=== PATIENT | male | born 1950 | race Caucasian/White ===

== ENCOUNTER 2017-02-12 21:04 | Emergency (ER) | payer OTHER, BC ==
[~2017-02-12] VITALS: Ht 177.8 cm; Wt 97.0 kg
[2017-02-12] MEDS ORDERED: ROBAXIN750 MG PO (21:52)
[2017-02-12] MEDS ORDERED: NORCO 5/3251 TABLET PO (21:52)
[2017-02-12 22:23] VITALS: BP 172/104
== END 2017-02-12 22:24 | disposition home or self-care (01) ==
LOC: EXP 21:04 → EME 21:04 → EXP 22:24
DX: M79.652 Pain in left thigh (principal); R25.2 Cramp and spasm; I10 Essential (primary) hypertension; Z79.01 Long term (current) use of anticoagulants; Z88.0 Allergy status to penicillin; Z87.891 Personal history of nicotine dependence
CPT/HCPCS: 99281; 99283

== ENCOUNTER 2017-02-14 17:33 | Inpatient (IN) | payer OTHER, BC ==
[~2017-02-14] VITALS: Ht 177.8 cm; Wt 94.8 kg
[~2017-02-14 17:33] MED LIST: NORCO 5/3251 TABLET PO; ROBAXIN750 MG PO
[2017-02-14 18:53] LABS: MCH 29.1 PG (29.0-34.0); MCV 85.6 FL (86-99); MEAN PLAT.VOLUME 10.7 uM^3 (9.0-12.4); PLATELET COUNT 239 K/uL (156-360); RBC DIS.WIDTH-CV 13.6 % (11.8-14.6); RBC DIS.WIDTH-SD 42.5 % (39-53); RED BLOOD COUNT 4.09 M/uL (4.00-5.50); WHITE BLOOD COUNT 14.5 K/uL (4.1-10.2)
[2017-02-14 19:03] LABS: CHLORIDE 99 mEq/L (99-109); POTASSIUM 3.7 mEq/L (3.7-5.4); SODIUM 133 mEq/L (136-147)
[2017-02-14 19:04] LABS: GLUCOSE 233 mg/dL (70-99)
[2017-02-14 19:06] LABS: ANION GAP 11 MEQ/L (2-14)
[2017-02-14 19:08] LABS: GFR ESTIMATE (CALCULATED) > 59 mL/min/
[2017-02-14 19:09] LABS: UREA NITROGEN (BUN) 13 mg/dL (9-23)
[2017-02-14] MEDS ORDERED: NEXIUM40 MG PO (21:13)
[2017-02-14] MEDS ORDERED: BENTYL20 MG PO (21:13)
[2017-02-14] MEDS ORDERED: COUMADIN4 MG PO (21:14)
[2017-02-14] MEDS ORDERED: XALATAN2.5 ML BOTH EYES (21:14)
[2017-02-14] MEDS ORDERED: LOTREL 10/21 CAPSULE PO (21:14)
[2017-02-14] MEDS ORDERED: PREDNISONE5 MG PO (21:14)
[2017-02-14] MEDS ORDERED: LITE COAT ASPI325 M1 PO (21:15)
[2017-02-14] MEDS ORDERED: CENTRUM MEN'S1 EACH PO (21:15)
[2017-02-14] MEDS ORDERED: REFRESH TEARS15 ML BOTH EYES (21:15)
[2017-02-14] MEDS ORDERED: COSOPT EYE DROP10 ML BOTH EYES (21:15)
[2017-02-14] MEDS ORDERED: SALINE NASAL SP45 ML BOTH NARES (21:16)
[2017-02-14 22:56] VITALS: BP 141/83
[2017-02-14 23:52] VITALS: BP 141/83
[2017-02-15 00:19] LABS: POINT-OF-CARE METER ID UU13113774
[2017-02-15 05:54] LABS: POINT-OF-CARE METER ID UU13113774
[2017-02-15 06:00] LABS: HEMATOCRIT 33.3 % (38.0-50.0); MCH 29.9 PG (29.0-34.0); MCHC 34.2 G/DL (30.0-36.0); MCV 87.4 FL (86-99); MEAN PLAT.VOLUME 10.3 uM^3 (9.0-12.4); PLATELET COUNT 197 K/uL (156-360); RBC DIS.WIDTH-SD 44.8 % (39-53); RED BLOOD COUNT 3.81 M/uL (4.00-5.50); WHITE BLOOD COUNT 11.2 K/uL (4.1-10.2)
[2017-02-15 06:04] LABS: INTER. NORMALIZED RATIO 2.8; PROTHROMBIN TIME 32.3 SEC (10.2-12.9)
[2017-02-15 06:29] LABS: ANION GAP 8 MEQ/L (2-14); CHLORIDE 100 MEQ/L (99-109); GFR ESTIMATE (CALCULATED) > 59 mL/min/; GLUCOSE 142 mg/dL (70-99); POTASSIUM 3.5 MEQ/L (3.7-5.4); SAMPLE HEMOLYSIS CHECK 0; SAMPLE ICTERIC CHECK 0; SAMPLE LIPEMIA CHECK 0; SODIUM 137 MEQ/L (136-147); TOTAL BILIRUBIN 0.7 MG/DL (0.0-1.0); UREA NITROGEN (BUN) 13 mg/dL (9-23)
[2017-02-15 06:34] LABS: ALKALINE PHOSPHATASE 109 IU/L (3-129)
[2017-02-15 07:45] VITALS: BP 138/63
[2017-02-15 11:41] LABS: POINT-OF-CARE METER ID UU13113774
[2017-02-15 15:13] VITALS: BP 134/69
[2017-02-15 15:54] LABS: POINT-OF-CARE METER ID UU13113774
[2017-02-15 20:40] VITALS: BP 137/79
[2017-02-15 21:34] LABS: POINT-OF-CARE METER ID UU13113774
[2017-02-16 00:08] VITALS: BP 154/72
[2017-02-16 05:39] LABS: HEMATOCRIT 30.7 % (38.0-50.0); MCH 30.1 PG (29.0-34.0); MCHC 34.2 G/DL (30.0-36.0); MEAN PLAT.VOLUME 10.5 uM^3 (9.0-12.4); PLATELET COUNT 188 K/uL (156-360); RBC DIS.WIDTH-CV 13.8 % (11.8-14.6); RBC DIS.WIDTH-SD 44.4 % (39-53); RED BLOOD COUNT 3.49 M/uL (4.00-5.50); WHITE BLOOD COUNT 8.6 K/uL (4.1-10.2)
[2017-02-16 06:20] LABS: ALKALINE PHOSPHATASE 96 IU/L (3-129); ANION GAP 8 MEQ/L (2-14); CHLORIDE 104 MEQ/L (99-109); GFR ESTIMATE (CALCULATED) > 59 mL/min/; GLUCOSE 118 mg/dL (70-99); POTASSIUM 3.8 MEQ/L (3.7-5.4); SAMPLE HEMOLYSIS CHECK 0; SAMPLE ICTERIC CHECK 0; SAMPLE LIPEMIA CHECK 0; SODIUM 140 MEQ/L (136-147); UREA NITROGEN (BUN) 15 mg/dL (9-23)
[2017-02-16 06:21] LABS: CREATINE KINASE 1477 IU/L (1-294)
[2017-02-16 06:30] LABS: POINT-OF-CARE METER ID UU13113774
[2017-02-16 06:36] LABS: INTER. NORMALIZED RATIO 1.8
[2017-02-16 06:50] LABS: PROTHROMBIN TIME 20.3 SEC (10.2-12.9)
[2017-02-16 07:11] VITALS: BP 153/72
[2017-02-16 11:47] LABS: POINT-OF-CARE METER ID UU13113774
[2017-02-16 15:10] VITALS: BP 137/69
[2017-02-16 16:56] LABS: POINT-OF-CARE METER ID UU13113774
[2017-02-16 21:12] LABS: POINT-OF-CARE METER ID UU13113725
[2017-02-16 22:34] VITALS: BP 168/77
[2017-02-16 22:47] VITALS: BP 169/79
[2017-02-17 06:03] LABS: INTER. NORMALIZED RATIO 1.5; PROTHROMBIN TIME 16.9 SEC (10.2-12.9)
[2017-02-17 06:12] LABS: POINT-OF-CARE METER ID UU13113774
[2017-02-17 07:50] VITALS: BP 133/65
[2017-02-17 11:00] LABS: POINT-OF-CARE METER ID UU13113725
[2017-02-17 15:43] LABS: POINT-OF-CARE METER ID UU13113774
[2017-02-17 16:43] VITALS: BP 140/80
[2017-02-17 19:20] LABS: ADD MIUA? NO; BILIRUBIN NEGATIVE; BLOOD NEGATIVE; COLOR YELLOW ((YELLOW)); GLUCOSE (STRIP) NEGATIVE; KETONES NEGATIVE; LEUKOCYTES NEGATIVE; NITRITE NEGATIVE; PROTEIN (STRIP) NEGATIVE; SPECIFIC GRAVITY 1.013 (1.000-1.030); UROBILINOGEN 0.2 MG/DL (0.2-1.0)
[2017-02-17 21:45] LABS: POINT-OF-CARE METER ID UU13113774
[2017-02-17 23:15] VITALS: BP 158/76
[2017-02-18 06:06] LABS: POINT-OF-CARE METER ID UU13113774
[2017-02-18 06:46] LABS: HEMATOCRIT 31.8 % (38.0-50.0); MCH 29.9 PG (29.0-34.0); MCHC 33.6 G/DL (30.0-36.0); MCV 88.8 FL (86-99); MEAN PLAT.VOLUME 10.4 uM^3 (9.0-12.4); PLATELET COUNT 232 K/uL (156-360); RBC DIS.WIDTH-CV 13.9 % (11.8-14.6); RBC DIS.WIDTH-SD 45.1 % (39-53); RED BLOOD COUNT 3.58 M/uL (4.00-5.50); WHITE BLOOD COUNT 7.5 K/uL (4.1-10.2)
[2017-02-18 07:01] LABS: INTER. NORMALIZED RATIO 1.4; PROTHROMBIN TIME 16.1 SEC (10.2-12.9)
[2017-02-18 07:20] LABS: ALKALINE PHOSPHATASE 75 IU/L (3-129); ANION GAP 8 MEQ/L (2-14); CHLORIDE 104 MEQ/L (99-109); GFR ESTIMATE (CALCULATED) > 59 mL/min/; GLUCOSE 112 mg/dL (70-99); POTASSIUM 3.9 MEQ/L (3.7-5.4); SAMPLE HEMOLYSIS CHECK 0; SAMPLE ICTERIC CHECK 0; SAMPLE LIPEMIA CHECK 0; SODIUM 141 MEQ/L (136-147); TOTAL BILIRUBIN 0.9 MG/DL (0.0-1.0); UREA NITROGEN (BUN) 15 mg/dL (9-23)
[2017-02-18 07:22] LABS: CREATINE KINASE 1197 IU/L (1-294)
[2017-02-18 08:02] VITALS: BP 127/68
[2017-02-18 11:43] LABS: POINT-OF-CARE METER ID UU13113774
[2017-02-18 15:28] VITALS: BP 136/68
[2017-02-18 16:20] LABS: POINT-OF-CARE METER ID UU13113774
[2017-02-18 21:19] LABS: POINT-OF-CARE METER ID UU13113774
[2017-02-18 22:45] VITALS: BP 159/83
[2017-02-19 05:42] LABS: POINT-OF-CARE METER ID UU13113725
[2017-02-19 06:42] LABS: INTER. NORMALIZED RATIO 1.4; PROTHROMBIN TIME 16.1 SEC (10.2-12.9)
[2017-02-19 07:26] VITALS: BP 137/69
[2017-02-19 07:38] LABS: ALKALINE PHOSPHATASE 81 IU/L (3-129); ANION GAP 11 MEQ/L (2-14); CHLORIDE 104 MEQ/L (99-109); CREATINE KINASE 757 IU/L (1-294); GFR ESTIMATE (CALCULATED) > 59 mL/min/; GLUCOSE 112 mg/dL (70-99); POTASSIUM 3.9 MEQ/L (3.7-5.4); SAMPLE HEMOLYSIS CHECK 0; SAMPLE ICTERIC CHECK 0; SAMPLE LIPEMIA CHECK 0; SODIUM 141 MEQ/L (136-147); UREA NITROGEN (BUN) 16 mg/dL (9-23)
[2017-02-19 11:23] LABS: POINT-OF-CARE METER ID UU13113774
[2017-02-19] MEDS ORDERED: COUMADIN3 MG PO (13:49)
[2017-02-19] MEDS ORDERED: LOVENOX100 MG/1 M SC (13:50)
[2017-02-19] MEDS ORDERED: METFORMIN HCL500 M4 PO (13:52)
== END 2017-02-19 15:17 | disposition home or self-care (01) | DRG 605 ==
LOC: EME 17:33 → 5EAST 21:39 → EDOF 21:39 → ENRESERV 21:43 → 5EAST 22:36 → ENPENDDIS 02-19 → 5EAST 02-19 15:17
PROVIDERS: Emergency Medicine; Family Medicine; Internal Medicine; Internal Medicine Nephrology; Surgery
DX: S80.12XA Contusion of left lower leg, initial encounter (principal); X50.0XXA Overexertion from strenuous movement or load, initial encounter; M62.82 Rhabdomyolysis; D68.62 Lupus anticoagulant syndrome; E11.9 Type 2 diabetes mellitus without complications; I10 Essential (primary) hypertension; K21.9 Gastro-esophageal reflux disease without esophagitis; H46.8 Other optic neuritis; M19.90 Unspecified osteoarthritis, unspecified site; M48.00 Spinal stenosis, site unspecified; M25.562 Pain in left knee; M79.652 Pain in left thigh; R80.9 Proteinuria, unspecified; Z79.01 Long term (current) use of anticoagulants; Z82.49 Family history of ischemic heart disease and other diseases of the circulatory system; Z87.891 Personal history of nicotine dependence
CPT/HCPCS: 36415; 73706; 80048; 80053; 81003; 82550; 82550 91; 82948; 83605; 85025; 85027; 85610; 86850; 86900; 86901; 99281; 99283; 99285; J1650; J1815; J2270; J7030; J7512